=== PATIENT | female | born 1995 | race Caucasian/White ===

== ENCOUNTER 2017-01-30 18:55 | Emergency (ER) | payer OTHER | END 2017-01-30 19:31 | disposition home or self-care (01) | LOC: FER 18:55 | DX: R09.1 Pleurisy (principal); F17.210 Nicotine dependence, cigarettes, uncomplicated | CPT/HCPCS: 99283 ==

== ENCOUNTER 2017-02-04 22:35 | Emergency (ER) | payer OTHER | END 2017-02-05 00:13 | disposition home or self-care (01) | LOC: FER 22:35 | DX: O99.89 Other specified diseases and conditions complicating pregnancy, childbirth and the puerperium (principal); Z04.3 Encounter for examination and observation following other accident; Z3A.16 16 weeks gestation of pregnancy | CPT/HCPCS: 99283 ==